=== PATIENT | female | born 1960 | race Caucasian/White ===

== ENCOUNTER 2017-06-06 12:15 | Outpatient (CLI) | payer OTHER | END 2017-06-06 12:16 | disposition home or self-care (01) | LOC: BICMAMMO 12:15 | DX: Z12.31 Encounter for screening mammogram for malignant neoplasm of breast (principal); N64.89 Other specified disorders of breast | CPT/HCPCS: 77063 ==

== ENCOUNTER 2017-07-06 06:54 | Outpatient (CLI) | payer MEDICARE | END 2017-07-06 06:55 | disposition home or self-care (01) | LOC: BICMAMMO 06:54 | DX: N63.20 Unspecified lump in the left breast, unspecified quadrant (principal); R92.2 Inconclusive mammogram | CPT/HCPCS: 76642; G0206; G0279 ==

== ENCOUNTER 2018-07-21 09:02 | Outpatient (CLI) | payer MEDICARE ==
--- NOTE | 2018-07-21 11:30 | BD ---
DEXA SCAN: INDICATION: Osteopenia. COMPARISON: Prior exam dated 05/13/2016 from [facility]. FINDINGS: Lumbar Spine: BMD (g/cm2) L1 0.853 T-Score: -1.2 Z-Score: 0.0 L2 0.900 T-Score: -1.2 Z-Score: 0.2 L3 0.918 T-Score: -1.5 Z-Score: -0.1 L4 0.852 T-Score: -1.9 Z-Score: -0.4 L1-L4 0.882 T-Score: -1.5 Z-Score: -0.1 Femoral Neck: 0.654 T-Score: -1.8 Z-Score: -0.5 Total Femur: 0.951 T-Score: 0.1 Z-Score: 1.0 The bone mineral density of the left femoral neck region is slightly worse than on the comparison exa mination from [facility] of 05/13/2016. Impression: Based on WHO criteria, the patient's bone mineral density remains osteopenic. The bone mineral densi ty is slightly worse than seen on the comparison examination in 05/13/2016. The patient's 10-year fr acture risk for a major osteoporotic fracture is 7.5% and for a hip fracture 0.8%. POS: CET
== END 2018-07-21 09:03 | disposition home or self-care (01) ==
LOC: BICMAMMO 09:02
PROVIDERS: ATTEND Student in an Organized Health Care Education/Training Program
DX: Z12.31 Encounter for screening mammogram for malignant neoplasm of breast (principal); M85.89 Other specified disorders of bone density and structure, multiple sites
CPT/HCPCS: 77063; 77067; 77080

== ENCOUNTER 2019-07-23 09:15 | Outpatient (CLI) | payer MEDICARE ==
--- NOTE | 2019-07-23 10:06 | MMO ---
Bilateral MAMMO Bilat Screen [facility]. CLINICAL HISTORY: Patient is 58 years old and is seen for screening. The patient has no family history of breast cancer. The patient has no personal history of cancer. VIEWS: The views performed were: bilateral craniocaudal with tomosynthesis and bilateral mediolateral oblique with tomosynthesis. FILMS COMPARED: The present examination has been compared to prior imaging studies performed at [facility] on 05/20/2016, 06/06/2017, 07/06/2017 and 07/21/2018. This study has been interpreted with the assistance of computer-aided detection. MAMMOGRAM FINDINGS: The breasts are heterogeneously dense, which could obscure a lesion on mammography. There are no suspicious masses, suspicious calcifications, or new areas of architectural distortion. IMPRESSION: THERE IS NO MAMMOGRAPHIC EVIDENCE OF MALIGNANCY. A ROUTINE FOLLOW-UP MAMMOGRAM IN 1 YEAR IS RECOMMENDED. THE RESULTS OF THIS EXAM WERE SENT TO THE PATIENT. ACR BI-RADS Category 1 - Negative MAMMOGRAPHY NOTE: 1. A negative mammogram report should not delay a biopsy if a dominant of clinically suspicious mass is present. 2. Approximately 10% to 15% of breast cancers are not detected by mammography. 3. Adenosis and dense breasts may obscure an underlying neoplasm. Reported by: SANDY THOMPSON MD Electonically Signed: [id number]
== END 2019-07-23 09:16 | disposition home or self-care (01) ==
LOC: BICMAMMO 09:15
PROVIDERS: ATTEND Family Medicine
DX: Z12.31 Encounter for screening mammogram for malignant neoplasm of breast (principal)
CPT/HCPCS: 77063; 77067

== ENCOUNTER 2020-07-29 14:14 | Outpatient (CLI) | payer MEDICARE ==
--- NOTE | 2020-07-29 16:18 | MMO ---
Bilateral MAMMO Bilat Screen [facility]. CLINICAL HISTORY: Patient is 59 years old and is seen for screening. The patient has no family history of breast cancer. The patient has no personal history of cancer. VIEWS: The views performed were: bilateral craniocaudal with tomosynthesis and bilateral mediolateral oblique with tomosynthesis. FILMS COMPARED: The present examination has been compared to prior imaging studies performed at [facility] on 06/06/2017, 07/06/2017, 07/21/2018 and 07/23/2019. This study has been interpreted with the assistance of computer-aided detection. MAMMOGRAM FINDINGS: The breasts are heterogeneously dense, which could obscure a lesion on mammography. There are no suspicious masses, suspicious calcifications, or new areas of architectural distortion. IMPRESSION: THERE IS NO MAMMOGRAPHIC EVIDENCE OF MALIGNANCY. A ROUTINE FOLLOW-UP MAMMOGRAM IN 1 YEAR IS RECOMMENDED. THE RESULTS OF THIS EXAM WERE SENT TO THE PATIENT. ACR BI-RADS Category 1 - Negative MAMMOGRAPHY NOTE: 1. A negative mammogram report should not delay a biopsy if a dominant of clinically suspicious mass is present. 2. Approximately 10% to 15% of breast cancers are not detected by mammography. 3. Adenosis and dense breasts may obscure an underlying neoplasm. Reported by: SANDY THOMPSON MD Electonically Signed: [id number]
== END 2020-07-29 14:15 | disposition home or self-care (01) ==
LOC: BICMAMMO 14:14
PROVIDERS: ATTEND Family Medicine
DX: Z12.31 Encounter for screening mammogram for malignant neoplasm of breast (principal)
CPT/HCPCS: 77063; 77067

== ENCOUNTER 2021-10-28 09:04 | Outpatient (CLI) | payer MEDICARE | END 2021-10-28 09:05 | disposition home or self-care (01) | LOC: BICMAMMO 09:04 | PROVIDERS: ATTEND Family Medicine | DX: Z12.31 Encounter for screening mammogram for malignant neoplasm of breast (principal) | CPT/HCPCS: 77063; 77067 ==

== ENCOUNTER 2022-11-15 13:57 | Outpatient (CLI) | payer MEDICARE | END 2022-11-15 13:58 | disposition home or self-care (01) | LOC: BICMAMMO 13:57 | PROVIDERS: ATTEND Family Medicine | DX: Z12.31 Encounter for screening mammogram for malignant neoplasm of breast (principal); R92.8 Other abnormal and inconclusive findings on diagnostic imaging of breast | CPT/HCPCS: 77063; 77067 ==

== ENCOUNTER 2023-02-03 08:12 | Outpatient (CLI) | payer MEDICARE | END 2023-02-03 08:13 | disposition home or self-care (01) | LOC: BICMAMMO 08:12 | PROVIDERS: ATTEND Family Medicine | DX: N64.89 Other specified disorders of breast (principal) | CPT/HCPCS: 77065; G0279 ==

== ENCOUNTER 2025-02-13 08:40 | Outpatient (CLI) | payer MEDICARE, OTHER | END 2025-02-13 08:41 | disposition home or self-care (01) | LOC: BICMAMMO 08:40 | PROVIDERS: ATTEND Family Medicine | DX: Z12.31 Encounter for screening mammogram for malignant neoplasm of breast (principal) | CPT/HCPCS: 77063; 77067 ==